=== PATIENT | male | born 1945 | race Caucasian/White ===

== ENCOUNTER 2023-05-19 09:22 | Inpatient (IN) | payer MEDICARE, BC ==
[2023-05-19] MEDS ORDERED: ATROPINE SULFATE 0.4 MG/ML 1 ML VIAL IV STA (09:25)
[2023-05-19] MEDS ORDERED: ATROPINE SULFATE 0.1 MG/ML 10ML SYRINGE IV STA (09:25)
[2023-05-19 09:33] LABS: Glucose,Whole Blood 279 mg/dL (70-110)
[2023-05-19] MEDS ORDERED: NOREPINEPHRINE 4 MG in SODIUM CHLORIDE 0.9% 250 ML IV ONE (09:33)
--- NOTE | 2023-05-19 09:38 | ED ---
General Adult HPI - General Chief complaint: Cardiac Arrest/CPR Stated complaint: Cardiac Arrest Source: EMS, RN notes reviewed, old records reviewed Mode of arrival: EMS Limitations: physical limitation - History of Present Illness Initial comments: 77-year-old male presents status post cardiac arrest. This was out of Hospital unwitnessed arrest exact downtime is unknown. First responders had been contacted as the patient was unresponsive on his porch outside after going out to smoke a cigarette. This was at a proximally 745. CPR was initiated by police. It was continued by paramedics, he received a Geraldo airway. He was given multiple doses of epinephrine and atropine. Initial rhythm was asystole. He did regain an organized rhythm as well as pulses during transport and was brought to this institution. This was likely a prolonged downtime prior to CPR as well as a prolonged CPR. - Related Data Allergies Allergy/AdvReac Type Severity Reaction Status Date / Time No Known Allergies Allergy Verified 05/19/23 09:28 Review of Systems ROS Statement: Those systems with pertinent positive or pertinent negative responses have been documented in the HPI. ROS Other: All systems not noted in ROS Statement are negative. General Exam General appearance: obtunded Head exam: Present: atraumatic, normocephalic Eye exam: Present: PERRL (Pulses are 7 mm and fixed) Neck exam: Present: normal inspection Respiratory exam: Present: other (Lateral breath sounds). Absent: respiratory distress, wheezes Cardiovascular Exam: Present: normal rhythm, bradycardia GI/Abdominal exam: Present: soft. Absent: distended, tenderness Neurological exam: Absent: alert Skin exam: Present: warm, dry Course Vital Signs 05/19/23 05/19/23 05/19/23 09:24 09:30 10:14 Temperature 96.8 F L Pulse Rate 48 L Respiratory 16 Rate Blood Pressure 94/66 Fraction of 100 100 Inspired Oxygen (FIO2) 05/19/23 11:16 Temperature Pulse Rate Respiratory Rate Blood Pressure Fraction of 100 Inspired Oxygen (FIO2) Procedures - Intubation Laryngoscope: Saurav Size: 3 ET Tube Size: 7.5 ET Tube Uncuffed: No Tube Secured Depth (cm): 23 Tube Secured Location: lips Tube Placement Confirmation: visualized tube passing through cords, equal breath sounds bilaterally, no breath sounds over epigastrium, confirmation by cap nometry Patient Tolerated Procedure: well, no complications Intubation Complications: none Medical Decision Making - Medical Decision Making Was pt. sent in by a medical professional or institution (CHANI Moran, IMPROVEMENT ANALYST, urgent care, hospital, or skilled nursing...) When possible be specific @ -No Did you speak to anyone other than the patient for history (EMS, parent, family, police, friend...)? What history was obtained from this source @ -[EMS Did you review nursing and triage notes (agree or disagree)? Why? @ -I reviewed and agree with nursing and triage notes Were old charts reviewed (outside hosp., previous admission, EMS record, old EKG, old radiological studies, urgent care reports/EKG's, skilled nursing records)? Report findings @ -No old charts were reviewed Differential Diagnosis (chest pain, altered mental status, abdominal pain women, abdominal pain men, vaginal bleeding, weakness, fever, dyspnea, syncope, head ache, dizziness, GI bleed, back pain, seizure, CVA, palpatations, mental health, musculoskeletal)? @ -Cardiac arrest EKG interpreted by me (3pts min.). @ -Sinus bradycardia rate 45, WI interval 167, QRS duration 151, QTC 481 X-rays interpreted by me (1pt min.). @Chest x-ray showing pulmonary edema, satisfactory ET tube placement CT interpreted by me (1pt min.). @ -None done U/S interpreted by me (1pt. min.). @ -None done What testing was considered but not performed or refused? (CT, X-rays, U/S, labs)? Why? @ -None What meds were considered but not given or refused? Why? @ -None Did you discuss the management of the patient with other professionals (professionals i.e. CHANI Moran, IMPROVEMENT ANALYST, lab, RT, psych nurse, director social welfare, circulating nurse, teacher, information management officer, case management coordinator)? Give summary @ -Case discussed with Dr. Huerta who will admit and Dr. Fournier covering for critical care Was smoking cessation discussed for >3mins.? @ -No Was critical care preformed (if so, how long)? @ -Yes, 35 minutes Were there social determinants of health that impacted care today? How? (Homelessness, low income, unemployed, alcoholism, drug addiction, transportation, low edu. Level, literacy, decrease access to med. care, longterm, rehab)? @ -No Was there de-escalation of care discussed even if they declined (Discuss DNR or withdrawal of care, Hospice)? DNR status @ -No What co-morbidities impacted this encounter? (DM, HTN, Smoking, COPD, CAD, Cancer, CVA, ARF, Chemo, Hep., AIDS, mental health diagnosis, sleep apnea, morbid obesity)? @ -CAD, peripheral vascular disease Was patient admitted / discharged? Hospital course, mention meds given and route, prescriptions, significant lab abnormalities, going to OR and other pertinent info. @ -[77 -year-old male presenting as out of Hospital cardiac arrest. Patient does have a measurable blood pressure and is in an organized rhythm upon arrival. His bedside echo shows severely depressed EF. He requires vasopressors. He's intubated upon arrival. Patient has very poor prognosis, no corneal reflex, no pupillary reflex, no gag. He has lab abnormalities consistent with prolonged downtime including pH of 6.8, lactic acid of 13. He's in multiorgan failure. I did discuss with the at length the poor prognosis. At this time the patient will be marked DO NOT RESUSCITATE, no CPR further. Undiagnosed new problem with uncertain prognosis? @ -No Drug Therapy requiring intensive monitoring for toxicity (Heparin, Nitro, Insulin, Cardizem)? @ -No Were any procedures done? @ -No Diagnosis/symptom? @Cardiopulmonary arrest with return of spontaneous circulation Acute, or Chronic, or Acute on Chronic? @Acute Uncomplicated (without systemic symptoms) or Complicated (systemic symptoms)? @ -complicated Side effects of treatment? @ -No Exacerbation, Progression, or Severe Exacerbation? @ -No Poses a threat to life or bodily function? How? (Chest pain, USA, CA, pneumonia, PE, COPD, DKA, ARF, appy, cholecystitis, CVA, Diverticulitis, Homicidal, Suicidal, threat to staff... and all critical care pts) @ -[yes, likely end-of-life - Lab Data Result diagrams: 05/19/23 09:31 05/19/23 09:31 Lab Results 05/19/23 05/19/23 05/19/23 Range/Units 09:31 09:31 09:31 WBC 5.4 (3.8-10.6) k/uL RBC 4.93 (4.30-5.90) m/uL Hgb 16.0 (13.0-17.5) gm/dL Hct 53.4 H (39.0-53.0) % MCV 108.2 H (80.0-100.0) fL MCH 32.4 (25.0-35.0) pg MCHC 30.0 L (31.0-37.0) g/dL RDW 13.6 (11.5-15.5) % Plt Count 89 L (150-450) k/uL MPV 10.3 Neutrophils % 56 % Lymphocytes % 35 % Monocytes % 3 % Eosinophils % 2 % Basophils % 1 % Neutrophils # 3.0 (1.3-7.7) k/uL Lymphocytes # 1.9 (1.0-4.8) k/uL Monocytes # 0.2 (0-1.0) k/uL Eosinophils # 0.1 (0-0.7) k/uL Basophils # 0.1 (0-0.2) k/uL Manual Slide Review Performed Hypochromasia Marked Macrocytosis Marked A PT 13.3 H (10.0-12.5) sec INR 1.3 H (<1.2) APTT 42.0 H (22.0-30.0) sec Sample Site ABG pH (7.35-7.45) ABG pCO2 (35-45) mmHg ABG pO2 (83-108) mmHg ABG HCO3 (21-25) mmol/L ABG Total CO2 (19-24) mmol/L ABG O2 Saturation (94-97) % ABG Base Excess mmol/L Jeff Test FiO2 % Sodium (137-145) mmol/L Potassium (3.5-5.1) mmol/L Chloride (98-107) mmol/L Carbon Dioxide (22-30) mmol/L Anion Gap mmol/L BUN (9-20) mg/dL Creatinine (0.66-1.25) mg/dL Est GFR (CKD-EPI)AfAm (>60 ml/min/1.73 sqM) Est GFR (CKD-EPI)NonAf (>60 ml/min/1.73 sqM) Glucose (74-99) mg/dL POC Glucose (mg/dL) (70-110) mg/dL POC Glu Predatory Game Hunter ID Plasma Lactic Acid Oliver (0.7-2.0) mmol/L Calcium (8.4-10.2) mg/dL Magnesium (1.6-2.3) mg/dL Total Bilirubin (0.2-1.3) mg/dL AST (17-59) U/L ALT (4-49) U/L Alkaline Phosphatase (38-126) U/L Troponin I (0.000-0.034) ng/mL Total Protein (6.3-8.2) g/dL Albumin (3.5-5.0) g/dL Urine Color Yellow Urine Appearance Clear (Clear) Urine pH 6.0 (5.0-8.0) Ur Specific [place] 1.020 (1.001-1.035) Urine Protein 1+ H (Negative) Urine Glucose (UA) Negative (Negative) Urine Ketones Negative (Negative) Urine Blood Negative (Negative) Urine Nitrite Negative (Negative) Urine Bilirubin Negative (Negative) Urine Urobilinogen <2.0 (<2.0) mg/dL Ur Leukocyte Esterase Negative (Negative) Urine RBC 3 (0-5) /hpf Urine WBC 1 (0-5) /hpf Urine Bacteria Rare H (None) /hpf Urine Mucus Occasional H (None) /hpf 05/19/23 05/19/23 05/19/23 Range/Units 09:31 09:31 09:31 WBC (3.8-10.6) k/uL RBC (4.30-5.90) m/uL Hgb (13.0-17.5) gm/dL Hct (39.0-53.0) % MCV (80.0-100.0) fL MCH (25.0-35.0) pg MCHC (31.0-37.0) g/dL RDW (11.5-15.5) % Plt Count (150-450) k/uL MPV Neutrophils % % Lymphocytes % % Monocytes % % Eosinophils % % Basophils % % Neutrophils # (1.3-7.7) k/uL Lymphocytes # (1.0-4.8) k/uL Monocytes # (0-1.0) k/uL Eosinophils # (0-0.7) k/uL Basophils # (0-0.2) k/uL Manual Slide Review Hypochromasia Macrocytosis PT (10.0-12.5) sec INR (<1.2) APTT (22.0-30.0) sec Sample Site ABG pH (7.35-7.45) ABG pCO2 (35-45) mmHg ABG pO2 (83-108) mmHg ABG HCO3 (21-25) mmol/L ABG Total CO2 (19-24) mmol/L ABG O2 Saturation (94-97) % ABG Base Excess mmol/L Jeff Test FiO2 % Sodium 143 (137-145) mmol/L Potassium 4.7 (3.5-5.1) mmol/L Chloride 111 H (98-107) mmol/L Carbon Dioxide 13 L (22-30) mmol/L Anion Gap 19 mmol/L BUN 24 H (9-20) mg/dL Creatinine 1.92 H (0.66-1.25) mg/dL Est GFR (CKD-EPI)AfAm 38 (>60 ml/min/1.73 sqM) Est GFR (CKD-EPI)NonAf 33 (>60 ml/min/1.73 sqM) Glucose 280 H (74-99) mg/dL POC Glucose (mg/dL) (70-110) mg/dL POC Glu Predatory Game Hunter ID Plasma Lactic Acid Oliver 12.8 H* (0.7-2.0) mmol/L Calcium 9.0 (8.4-10.2) mg/dL Magnesium 2.6 H (1.6-2.3) mg/dL Total Bilirubin 1.4 H (0.2-1.3) mg/dL AST 449 H (17-59) U/L ALT 282 H (4-49) U/L Alkaline Phosphatase 101 (38-126) U/L Troponin I 0.036 H* (0.000-0.034) ng/mL Total Protein 6.6 (6.3-8.2) g/dL Albumin 3.9 (3.5-5.0) g/dL Urine Color Urine Appearance (Clear) Urine pH (5.0-8.0) Ur Specific [place] (1.001-1.035) Urine Protein (Negative) Urine Glucose (UA) (Negative) Urine Ketones (Negative) Urine Blood (Negative) Urine Nitrite (Negative) Urine Bilirubin (Negative) Urine Urobilinogen (<2.0) mg/dL Ur Leukocyte Esterase (Negative) Urine RBC (0-5) /hpf Urine WBC (0-5) /hpf Urine Bacteria (None) /hpf Urine Mucus (None) /hpf 05/19/23 05/19/23 Range/Units 09:32 09:56 WBC (3.8-10.6) k/uL RBC (4.30-5.90) m/uL Hgb (13.0-17.5) gm/dL Hct (39.0-53.0) % MCV (80.0-100.0) fL MCH (25.0-35.0) pg MCHC (31.0-37.0) g/dL RDW (11.5-15.5) % Plt Count (150-450) k/uL MPV Neutrophils % % Lymphocytes % % Monocytes % % Eosinophils % % Basophils % % Neutrophils # (1.3-7.7) k/uL Lymphocytes # (1.0-4.8) k/uL Monocytes # (0-1.0) k/uL Eosinophils # (0-0.7) k/uL Basophils # (0-0.2) k/uL Manual Slide Review Hypochromasia Macrocytosis PT (10.0-12.5) sec INR (<1.2) APTT (22.0-30.0) sec Sample Site lrad ABG pH 6.80 L* (7.35-7.45) ABG pCO2 92 H* (35-45) mmHg ABG pO2 110 H (83-108) mmHg ABG HCO3 14 L (21-25) mmol/L ABG Total CO2 17 L (19-24) mmol/L ABG O2 Saturation 91.5 L (94-97) % ABG Base Excess -20.1 mmol/L Jeff Test Yes FiO2 100 % Sodium (137-145) mmol/L Potassium (3.5-5.1) mmol/L Chloride (98-107) mmol/L Carbon Dioxide (22-30) mmol/L Anion Gap mmol/L BUN (9-20) mg/dL Creatinine (0.66-1.25) mg/dL Est GFR (CKD-EPI)AfAm (>60 ml/min/1.73 sqM) Est GFR (CKD-EPI)NonAf (>60 ml/min/1.73 sqM) Glucose (74-99) mg/dL POC Glucose (mg/dL) 279 H (70-110) mg/dL POC Glu Predatory Game Hunter ID Criss Christy Plasma Lactic Acid Oliver (0.7-2.0) mmol/L Calcium (8.4-10.2) mg/dL Magnesium (1.6-2.3) mg/dL Total Bilirubin (0.2-1.3) mg/dL AST (17-59) U/L ALT (4-49) U/L Alkaline Phosphatase (38-126) U/L Troponin I (0.000-0.034) ng/mL Total Protein (6.3-8.2) g/dL Albumin (3.5-5.0) g/dL Urine Color Urine Appearance (Clear) Urine pH (5.0-8.0) Ur Specific [place] (1.001-1.035) Urine Protein (Negative) Urine Glucose (UA) (Negative) Urine Ketones (Negative) Urine Blood (Negative) Urine Nitrite (Negative) Urine Bilirubin (Negative) Urine Urobilinogen (<2.0) mg/dL Ur Leukocyte Esterase (Negative) Urine RBC (0-5) /hpf Urine WBC (0-5) /hpf Urine Bacteria (None) /hpf Urine Mucus (None) /hpf Critical Care Time Critical Care Time: Yes Total Critical Care Time: 35 Disposition Clinical Impression: Cardiac arrest, Signs of return of spontaneous circulation Disposition: ADMITTED IP TO THIS [facility] Condition: Poor Is patient prescribed a controlled substance at d/c from ED?: No Referrals: Xavi Cummings MD [Primary Care Provider] - 1-2 days Time of Disposition: 11:34
[2023-05-19] MEDS ORDERED: EPINEPHrine 10 ML SYRINGE (0.1 MG/ML) IV STA (09:48)
--- NOTE | 2023-05-19 09:56 | XR ---
EXAMINATION TYPE: XR chest 1V portable DATE OF EXAM: 05/19/2023 COMPARISON: NONE HISTORY: Cardiac arrest TECHNIQUE: Single frontal view of the chest is obtained. FINDINGS: There is an ET tube 4.3 cm above the sharmila. There is an NG tube within the stomach. Heart is prominent in size. There are diffuse interstitial and alveolar infiltrates greatest in the upper lobes. There is no pleural effusion or pneumothorax. The osseous structures are intact. IMPRESSION: IMPRESSION: 1. ET tube 4.3 cm above the sharmila. NG tube within the stomach. 2. Mild cardiomegaly. 3. Diffuse lung infiltrates consistent with acute cardiopulmonary disease most likely interstitial an d alveolar edema.
[2023-05-19 10:03] LABS: ABG Base Excess -20.1 mmol/L; ABG HCO3 14 mmol/L (21-25); ABG Oxygen Saturation 91.5 % (94-97); ABG PO2 110 mmHg (83-108); ABG TCO2 17 mmol/L (19-24); Allen Test Performed? Yes
[2023-05-19 10:09] LABS: Basophils # (A) 0.1 k/uL (0-0.2); Basophils % (A) 1 %; Eosinophils # (A) 0.1 k/uL (0-0.7); Eosinophils % (A) 2 %; HCT 53.4 % (39.0-53.0); Hypochromasia Marked; Lymphocytes # (A) 1.9 k/uL (1.0-4.8); Lymphocytes % (A) 35 %; MCH 32.4 pg (25.0-35.0); MCV 108.2 fL (80.0-100.0); Macrocytosis Marked; Mean Platelet Volume 10.3; Monocytes # (A) 0.2 k/uL (0-1.0); Monocytes % (A) 3 %; Neutrophils % (A) 56 %; RBC 4.93 m/uL (4.30-5.90); RDW 13.6 % (11.5-15.5); WBC 5.4 k/uL (3.8-10.6)
[2023-05-19 10:12] LABS: ABG PCO2 92 mmHg (35-45)
[2023-05-19 10:22] LABS: ALT 282 U/L (4-49); African American GFR (CKD) 38 (>60 ml/min/1.73 sqM); Albumin 3.9 g/dL (3.5-5.0); Anion Gap 19 mmol/L; Blood Urea Nitrogen 24 mg/dL (9-20); Carbon Dioxide 13 mmol/L (22-30); Chloride 111 mmol/L (98-107); Glucose 280 mg/dL (74-99); Non-African American GFR(CKD) 33 (>60 ml/min/1.73 sqM); Sodium 143 mmol/L (137-145); Total Bilirubin 1.4 mg/dL (0.2-1.3); Total Protein 6.6 g/dL (6.3-8.2)
[2023-05-19 10:26] LABS: AST 449 U/L (17-59); Alkaline Phosphatase 101 U/L (38-126); Magnesium 2.6 mg/dL (1.6-2.3); Potassium 4.7 mmol/L (3.5-5.1)
[2023-05-19 10:32] LABS: Appearance,Urine Clear (Clear); Bacteria,Urine Rare /hpf; Bilirubin,Urine Negative (Negative); Blood,Urine Negative (Negative); Color,Urine Yellow; Glucose,Urine (UA) Negative (Negative); Ketones,Urine Negative (Negative); Leukocyte Esterase,Urine Negative (Negative); Mucus,Urine Occasional /hpf; Nitrite,Urine Negative (Negative); Protein,Urine 1+ (Negative); RBC,Urine 3 /hpf (0-5); Urobilinogen,Urine <2.0 mg/dL (<2.0); WBC,Urine 1 /hpf (0-5)
[2023-05-19 10:41] LABS: Platelet Count 89 k/uL (150-450)
[2023-05-19 10:45] LABS: INR 1.3 (<1.2); Prothrombin Time 13.3 sec (10.0-12.5)
[2023-05-19] MEDS ORDERED: MORPHINE SULFATE 4 MG/ML SYRINGE IV PRN (11:23)
[2023-05-19] MEDS ORDERED: LORazepam 2 MG/ML INJ IV PRN (11:23)
[2023-05-19] MEDS ORDERED: NALOXONE 0.4 MG/ML 1 ML VIAL IV PRN (11:23)
[2023-05-19] MEDS ORDERED: IPRATROPIUM-ALBUTEROL 3 ML NEB INHALATION PRN (11:50)
--- NOTE | 2023-05-19 12:01 | P.CNPUL ---
History of Present Illness Consult date: 05/19/23 Chief complaint: Cardiac arrest History of present illness: 77-year-old male patient with prolonged cardiac arrest. Currently intubated on a mechanical ventilator. He lives in [place]. He is known to have coronary artery disease and he has undergone multiple coronary intervention, his credit checker Dr. Cummings. In same time he is also known to have peripheral vascular disease undergone vascular intervention to his legs. He is a chronic smoker. He has hypertension and hypothyroidism. He went out to smoke a cigarette at 745. He was found unresponsive at 820. He was found in asystole. CPR was applied. A Geraldo airway was established. The patient was given epinephrine and atropine 3 of each and [facility] He was intubated. Placed on a mechanical ventilator. Initially on a rate of 18, tidal volume of 450, FiO2 of on a percent with a PEEP of 5. Chest x-ray is consistent with pulmonary edema. The pH is at 6.8 with a CO2 of 92 and pO2 of 110. INR is 1.3. echoes of 5.4, hemoglobin is at 16, BUN is at 24 with a creatinine of 1.9. LFTs are abnormal and the troponins at 0.03. EKG showing sinus rhythm with some prolongation of the QT. UA is negative. Currently on norepinephrine at 0.1 mcg/kg/m. Current temperature is 90.6. Most recent BP is 123/66. No urine output. Pupils are fixed dilated. No respiratory efforts. No cough. No gag. No Babinski. No clonus. Motor function cannot be assessed. No signs of trauma. The tells me that he doesn't have any COPD. He has chronic dyspnea. He has not been compliant to his medication intake. Is a chronic smoker. Review of Systems ROS unobtainable: due to endotracheal tube Past Medical History Past Medical History: Coronary Artery Disease (CAD), Hyperlipidemia, Hypertension, Vascular Disorder Medications and Allergies Home Medications Medication Instructions Recorded Confirmed Type Atorvastatin [Lipitor] 80 mg PO HS 05/19/23 05/19/23 History Brimonidine Tartrate [Alphagan P 1 drops RIGHT EYE TID 05/19/23 05/19/23 History 0.2% Ophth Soln] Clopidogrel [Plavix] 75 mg PO DAILY 05/19/23 05/19/23 History Dorzolamide-Timol 2.23%/0.68% 1 drop BOTH EYES BID 05/19/23 05/19/23 History [Cosopt] Latanoprost [Latanoprost 0.005%] 1 drop BOTH EYES HS 05/19/23 05/19/23 History Levothyroxine Sodium [Synthroid] 150 mcg PO DAILY 05/19/23 05/19/23 History carvediloL [Coreg] 3.125 mg PO BID 05/19/23 05/19/23 History lisinopriL [Zestril] 20 mg PO DAILY 05/19/23 05/19/23 History Allergies Allergy/AdvReac Type Severity Reaction Status Date / Time No Known Allergies Allergy Verified 05/19/23 11:48 Physical Exam Vitals: Vital Signs Temp Pulse Resp BP FiO2 05/19/23 11:16 100 05/19/23 10:14 100 05/19/23 09:30 100 05/19/23 09:24 96.8 F L 48 L 16 94/66 Intake and Output 05/18/23 05/19/23 05/19/23 22:59 06:59 14:59 Intake Total 13.895 Output Total 300 Balance -286.105 Intake: Intake, IV Titration 13.895 Amount Norepinephrine 4 mg In 13.895 Sodium Chloride 0.9% 250 ml @ 0.03 MCG/KG/MIN 9. 332 mls/hr IV .Q24H ONE Rx#:[id number] Output: Urine 300 Uretheral ([place]) 300 Other: Weight 81.647 kg Intubated on a mechanical ventilator, orogastric and orotracheal tube are both in place Head exam was generally normal. There was no scleral icterus or corneal arcus. Mucous membranes were moist. Neck was supple and with jugular venous distension, thyromegaly, or carotid bruits. Carotids were easily palpable bilaterally. There was no adenopathy. Positive JVD is bilaterally Lungs were clear to auscultation and percussion, and with normal diaphragmatic excursion. No wheezes or rales were noted. Crackles in the mid and lower lung jade Cardiac exam revealed the PMI to be normally situated and sized. The rhythm was regular and no extrasystoles were noted during several minutes of auscultation. The first and second heart sounds were normal and physiologic splitting of the second heart sound was noted. There were no murmurs, rubs, clicks, or gallops. Abdominal exam revealed normal bowel sounds. The abdomen was soft, non-tender, and without masses, organomegaly, or appreciable enlargement of the abdominal aorta. Extremities revealed markedly diminished pulses and the legs are cold and clammy. No cyanosis or clubbing Neurologically fixed dilated pupils, no cough, no gag, no respiratory efforts, no nystagmus, no facial asymmetry, motor and sensory functions cannot be assessed. Reflexes are extremely weak and no Babinski or clonus. Results - Laboratory Findings CBC and BMP: 05/19/23 09:31 05/19/23 09:31 ABG ABG pH 6.80 (7.35-7.45) L* 05/19/23 09:56 ABG pCO2 92 mmHg (35-45) H* 05/19/23 09:56 ABG pO2 110 mmHg (83-108) H 05/19/23 09:56 ABG O2 Saturation 91.5 % (94-97) L 05/19/23 09:56 PT/INR, D-dimer PT 13.3 sec (10.0-12.5) H 05/19/23 09:31 INR 1.3 (<1.2) H 05/19/23 09:31 Abnormal lab findings: Abnormal Labs 05/19/23 05/19/23 05/19/23 09:31 09:31 09:31 Hct 53.4 H MCV 108.2 H MCHC 30.0 L Plt Count 89 L Macrocytosis Marked A PT 13.3 H INR 1.3 H APTT 42.0 H ABG pH ABG pCO2 ABG pO2 ABG HCO3 ABG Total CO2 ABG O2 Saturation Chloride Carbon Dioxide BUN Creatinine Glucose POC Glucose (mg/dL) Plasma Lactic Acid Oliver Magnesium Total Bilirubin AST ALT Troponin I Urine Protein 1+ H Urine Bacteria Rare H Urine Mucus Occasional H 05/19/23 05/19/23 05/19/23 09:31 09:31 09:31 Hct MCV MCHC Plt Count Macrocytosis PT INR APTT ABG pH ABG pCO2 ABG pO2 ABG HCO3 ABG Total CO2 ABG O2 Saturation Chloride 111 H Carbon Dioxide 13 L BUN 24 H Creatinine 1.92 H Glucose 280 H POC Glucose (mg/dL) Plasma Lactic Acid Oliver 12.8 H* Magnesium 2.6 H Total Bilirubin 1.4 H AST 449 H ALT 282 H Troponin I 0.036 H* Urine Protein Urine Bacteria Urine Mucus 05/19/23 05/19/23 09:32 09:56 Hct MCV MCHC Plt Count Macrocytosis PT INR APTT ABG pH 6.80 L* ABG pCO2 92 H* ABG pO2 110 H ABG HCO3 14 L ABG Total CO2 17 L ABG O2 Saturation 91.5 L Chloride Carbon Dioxide BUN Creatinine Glucose POC Glucose (mg/dL) 279 H Plasma Lactic Acid Oliver Magnesium Total Bilirubin AST ALT Troponin I Urine Protein Urine Bacteria Urine Mucus - Diagnostic Findings Chest x-ray: image reviewed Assessment and Plan Plan: Acute asystole/cardiac arrest, found in the field and resuscitated for an extended period of time. Intubated in the emergency department. Received CPR, epinephrine and atropine with return of spontaneous circulation. Currently intubated on a mechanical ventilator. Currently on high-dose pressors. Cardiogenic shock secondary to above Acute hypoxic respiratory failure with evidence of pulmonary edema secondary to above Severe acidosis with a lactic acid level of 12.8 secondary to above Acute kidney injury secondary to above, baseline creatinine is not known Acute hyperglycemia secondary to above Abnormal LFTs secondary to above Elevated troponins, secondary to above Known history of coronary artery disease with previous coronary intervention and stenting, under the care of Dr. Cummings Peripheral vascular disease Hypertension Hyperlipidemia Hypothyroidism Smoker Plan Patient is critically ill and neurologic functions are not present at this point in time. He has signs of severe anoxic encephalopathy Continue ventilator support, increase rate to 28, increase PEEP up to 10 Patient was given a liter of IV fluids in the emergency Continue maintenance at the rate of 75 mL an hour and switch this patient for a bicarb infusion with D5 and a total of 150 mEq of sodium bicarb Monitor lactic acid level Monitor the blood gases Repeated a blood once the patient arrives today ICU Avoid diuretics at this point in time Monitor urine output Obtain a CAT scan of the brain noncontrast Obtain echocardiogram was the patient rested ICU Triple-lumen catheter was established Resume oral Synthroid Resume oral Lipitor Resume oral Plavix Insulin sliding scale coverage and drip if needed based on his blood sugar control Lovenox 40 mg subcu portably prophylaxis Cardiology consultation Neurology consultation Condition is critical and outcome is poor based above-mentioned comorbidities. We'll continue to follow. Evaluation was done more than 30 minutes. Case was discussed with the family and ED physician. Time with Patient: Greater than 30
--- NOTE | 2023-05-19 12:02 | P.PCN ---
Date of Procedure: 05/19/23 Operative Findings: Preoperative Diagnosis: Acute hypoxic respiratory failure Postoperative Diagnosis: Same Procedure(s) Performed: Central line Anesthesia: local Surgeon: Estefania Fournier Estimated Blood Loss (ml): 0 Pathology: other Condition: critical Disposition: ICU Operative Findings: Indication: Hemodynamic monitoring/Intravenous access. A time-out was completed verifying correct patient, procedure, site, positioning, and implant(s) or special equipment if applicable. The patient was placed in a dependent position appropriate for central line placement based on the vein to be cannulated. The patients chest was prepped and draped in sterile fashion. 1% Lidocaine was used to anesthetize the surrounding skin area. A triple lumen 9F Cordis catheter was introduced into the left subclavian vein using Seldinger technique. The catheter was threaded smoothly over the guide wire and appropriate blood return was obtained. Each lumen of the catheter was evacuated of air and flushed with sterile saline. The catheter was then sutured in place to the skin and a sterile dressing applied. Perfusion to the extremity distal to the point of catheter insertion was checked and found to be adequate. The patient tolerated the procedure well and there were no complications.
--- NOTE | 2023-05-19 12:08 | XR ---
EXAMINATION TYPE: XR chest 1V portable DATE OF EXAM: 05/19/2023 COMPARISON: 05/19/2023 HISTORY: Line placement TECHNIQUE: Single frontal view of the chest is obtained. FINDINGS: There is an ET tube 5.5 cm above the sharmila. An NG tube in the distal esophagus. There is a left-sided PICC line terminating in the superior vena cava. There is no change in diffuse predominantly upper lobe interstitial and alveolar infiltrates. IMPRESSION: 1. ET tube 5.5 cm above the sharmila. 2. ET tube now in the distal esophagus. 3 left-sided PICC line in the SVC. 4. No change in the acute cardiopulmonary disease.
[2023-05-19 12:30] LABS: Glucose,Whole Blood 189 mg/dL (70-110)
[2023-05-19] MEDS: IPRATROPIUM-ALBUTEROL 3 ML NEB INHALATION SCH ×2 (12:37→15:17)
--- NOTE | 2023-05-19 12:50 | CT ---
EXAMINATION TYPE: CT brain wo con DATE OF EXAM: 05/19/2023 COMPARISON: None HISTORY: post cardiac arrest CT DLP: 1212.4 mGycm Automated exposure control for dose reduction was used. FINDINGS: There is loss of the whitt-white differentiation indicating diffuse brain edema. There is a large area of subtle decreased density in the distribution of the right middle cerebral artery consistent with an acute infarct. There is mass effect on the right lateral ventricle and slight shift in midline str uctures to the left. There is diffuse subarachnoid hemorrhage throughout the sulci bilaterally and layering along the tent orium and falx. The intraorbital contents appear normal and symmetric. Visualized paranasal sinuses and mastoid air cells are well aerated. There is an ET tube in place. IMPRESSION: 1. Diffuse acute subarachnoid hemorrhage and brain edema with slight mass effect and shift of midlin e structures to the left. 2. . Suspect large infarct involving the right frontal and temporal lobes in the distribution of the right middle cerebral artery. 3. MRI of the brain might be useful for further evaluation.
[2023-05-19] MEDS ORDERED: DEXTROSE 5% IN WATER 1,000 ML with SODIUM BICARB (1 MEQ/ML) 150 ML IV SCH (13:00)
[2023-05-19 13:03] LABS: ABG Base Excess -11.3 mmol/L; ABG HCO3 16 mmol/L (21-25); ABG Oxygen Saturation 99.4 % (94-97); ABG PCO2 39 mmHg (35-45); ABG PH 7.23 (7.35-7.45); ABG PO2 >400 mmHg (83-108); ABG TCO2 18 mmol/L (19-24); Allen Test Performed? Yes
--- NOTE | 2023-05-19 13:35 | P.CRDCN ---
History of Present Illness Consult date: 05/19/23 History of present illness: HISTORY OF PRESENTING ILLNESS 77-year-old male presents to the hospital after a prolonged cardiac arrest. History of CAD, multiple coronary intervention. He also has peripheral vascular disease chronic smoker hypertension hypogonadism. Patient was found unresponsive at home with a approximate downtime of 20 minutes. The EMS was informed and there have been seen in within 6 minutes. On arrival to note is that patient was in asystole. They performed CPR for 20 minutes with a total downtime of approximately 40-50 minutes. Patient was brought to the hospital and was intubated in the ICU. Patient is currently on the vent support. Is not on any sedatives but does not have any extremity reflexes including Reflex. Cardiology was consulted because of cardiac arrest REVIEW OF SYSTEMS Could not be obtained as patient is intubated and sedated PHYSICAL EXAMINATION Neck: ET tube in place Lungs: On vent support, good air entry bilateral lung jade. Heart: Regular rate and rhythm, S1-S2, no S3, no murmur or rub. Abdomen: Soft nontender, . Extremities: No edema,. Neuro: Not on any sedatives, no gag reflex on suctioning. Detailed neuro exam was not performed ASSESSMENT Out of hospital cardiac arrest with prolonged downtime Asystole cardiac arrest Prior history of CAD Prior history of PAD Chronic tobacco smoker PLAN At this time there is high likelihood that patient has anoxic brain injury We will await neurology evaluation for brain stem function Obtain an echocardiogram Supportive ICU care and vent support as per pulmonary team Past Medical History Past Medical History: Coronary Artery Disease (CAD), Hyperlipidemia, Hypertension, Vascular Disorder Medications and Allergies Home Medications Medication Instructions Recorded Confirmed Type Atorvastatin [Lipitor] 80 mg PO HS 05/19/23 05/19/23 History Brimonidine Tartrate [Alphagan P 1 drops RIGHT EYE TID 05/19/23 05/19/23 History 0.2% Ophth Soln] Clopidogrel [Plavix] 75 mg PO DAILY 05/19/23 05/19/23 History Dorzolamide-Timol 2.23%/0.68% 1 drop BOTH EYES BID 05/19/23 05/19/23 History [Cosopt] Latanoprost [Latanoprost 0.005%] 1 drop BOTH EYES HS 05/19/23 05/19/23 History Levothyroxine Sodium [Synthroid] 150 mcg PO DAILY 05/19/23 05/19/23 History carvediloL [Coreg] 3.125 mg PO BID 05/19/23 05/19/23 History lisinopriL [Zestril] 20 mg PO DAILY 05/19/23 05/19/23 History Allergies Allergy/AdvReac Type Severity Reaction Status Date / Time No Known Allergies Allergy Verified 05/19/23 11:48 Physical Exam Vitals: Vital Signs Temp Pulse Resp BP Pulse Ox FiO2 05/19/23 13:04 50 05/19/23 12:45 66 28 H 05/19/23 12:37 66 28 H 05/19/23 12:30 60 16 112/68 98 05/19/23 12:28 100 05/19/23 11:30 60 16 123/66 100 05/19/23 11:16 100 05/19/23 11:00 56 L 14 86/47 100 05/19/23 10:30 54 L 14 62/48 98 05/19/23 10:14 100 05/19/23 10:00 76 14 60/47 92 L 05/19/23 09:30 45 L 14 60/21 92 L 100 05/19/23 09:24 96.8 F L 48 L 16 94/66 Intake and Output 05/18/23 05/19/23 05/19/23 22:59 06:59 14:59 Intake Total 20.376 Output Total 300 Balance -279.624 Intake: Intake, IV Titration 20.376 Amount Norepinephrine 4 mg In 20.376 Sodium Chloride 0.9% 250 ml @ 0.03 MCG/KG/MIN 9. 332 mls/hr IV .Q24H ONE Rx#:[id number] Output: Urine 300 Uretheral ([place]) 300 Other: Weight 81.647 kg Results 05/19/23 09:31 05/19/23 09:31 Cardiac Enzymes 05/19/23 05/19/23 Range/Units 09:31 09:31 AST 449 H (17-59) U/L Troponin I 0.036 H* (0.000-0.034) ng/mL Coagulation 05/19/23 Range/Units 09:31 PT 13.3 H (10.0-12.5) sec APTT 42.0 H (22.0-30.0) sec CBC 01/21/24 Range/Units 09:31 WBC 5.4 (3.8-10.6) k/uL RBC 4.93 (4.30-5.90) m/uL Hgb 16.0 (13.0-17.5) gm/dL Hct 53.4 H (39.0-53.0) % Plt Count 89 L (150-450) k/uL Comprehensive Metabolic Panel 05/19/23 Range/Units 09:31 Sodium 143 (137-145) mmol/L Potassium 4.7 (3.5-5.1) mmol/L Chloride 111 H (98-107) mmol/L Carbon Dioxide 13 L (22-30) mmol/L BUN 24 H (9-20) mg/dL Creatinine 1.92 H (0.66-1.25) mg/dL Glucose 280 H (74-99) mg/dL Calcium 9.0 (8.4-10.2) mg/dL AST 449 H (17-59) U/L ALT 282 H (4-49) U/L Alkaline Phosphatase 101 (38-126) U/L Total Protein 6.6 (6.3-8.2) g/dL Albumin 3.9 (3.5-5.0) g/dL Current Medications Generic Name Dose Route Start Last Admin Trade Name Freq PRN Reason Stop Dose Admin Albuterol/Ipratropium 3 ml 05/19/23 12:00 05/19/23 12:37 Ipratropium-Albuterol 3 Ml Neb INHALATION 3 ml RT-Q4H DEMETRIUS Administration Albuterol/Ipratropium 3 ml 05/19/23 11:50 Ipratropium-Albuterol 3 Ml Neb INHALATION RT-Q2H PRN Shortness Of Breath Or Wheezing Atorvastatin Calcium 80 mg 05/19/23 21:00 Atorvastatin 80 Mg Tab PO HS DEMETRIUS Chlorhexidine Gluconate 15 ml 05/19/23 21:00 Chlorhexidine Gluconate 15 Ml Cup MUCOUS MEM BID DEMETRIUS Clopidogrel Bisulfate 75 mg 05/20/23 09:00 Clopidogrel 75 Mg Tab PO DAILY [facility] Norepinephrine Bitartrate 4 mg 254 mls @ 9.332 mls/hr 05/19/23 09:33 05/19/23 10:40 / Sodium Chloride IV 05/20/23 09:32 0.14 mcg/kg/min .Q24H ONE 43.551 mls/hr Titration Protocol 0.03 MCG/KG/MIN Propofol 1,000 mg/ IV Solution 100 mls @ 7.348 mls/hr 05/19/23 12:00 IV .[id number] DEMETRIUS Protocol 15 MCG/KG/MIN Sodium Bicarbonate 150 ml/ 1,150 mls @ 75 mls/hr 05/19/23 13:00 Dextrose/Water IV .[id number] DEMETRIUS Lorazepam 1 mg 05/19/23 11:23 Lorazepam 2 Mg/Ml Inj IV Q6HR PRN Anxiety Morphine Sulfate 4 mg 05/19/23 11:23 Morphine Sulfate 4 Mg/Ml Syringe IV Q3HR PRN Severe Pain (Scale 7 to 10) Naloxone HCl 0.2 mg 05/19/23 11:23 Naloxone 0.4 Mg/Ml 1 Ml Vial IV Q2M PRN Opioid Reversal Intake and Output 05/18/23 05/19/23 05/19/23 22:59 06:59 14:59 Intake Total 20.376 Output Total 300 Balance -279.624 Intake: Intake, IV Titration 20.376 Amount Norepinephrine 4 mg In 20.376 Sodium Chloride 0.9% 250 ml @ 0.03 MCG/KG/MIN 9. 332 mls/hr IV .Q24H ONE Rx#:[id number] Output: Urine 300 Uretheral ([place]) 300 Other: Weight 81.647 kg Patient Weight 05/20/23 06:59 Weight 81.647 kg 05/19/23 09:31 05/19/23 09:31
[2023-05-19 14:37] VITALS: TEMP 89.3
--- NOTE | 2023-05-19 15:36 | P.CNNES ---
History of Present Illness Consult date: 05/19/23 History of Present Illness: The pt is a 77 y/o male who is seen in neurologic consultation on 2023, in collaboration with Bradly Curry, via teleneurology. History is obtained from review of the chart. The pt reportedly was found down. Police started CPR. The pt had gone outside to smoke a cigarette. Actual downtime is unknown. It is at least 20 minutes. EMS arrived and continued CPR. The pt reportedly received multiple doses of epi and atropine. There was return of NSR. In the ER, the pt was intubated. CT scan of the brain is personally reviewed. It reveals severe, diffuse edema and subarachnoid hemorrhage. Laboratory evaluation reveals elevated lactic acid, Review of Systems unable to obtain secondary to mental status of pt Past Medical History Past Medical History: Coronary Artery Disease (CAD), Hyperlipidemia, Hypertension, Vascular Disorder Medications and Allergies Home Medications Medication Instructions Recorded Confirmed Type Atorvastatin [Lipitor] 80 mg PO HS 05/19/23 05/19/23 History Brimonidine Tartrate [Alphagan P 1 drops RIGHT EYE TID 05/19/23 05/19/23 History 0.2% Ophth Soln] Clopidogrel [Plavix] 75 mg PO DAILY 05/19/23 05/19/23 History Dorzolamide-Timol 2.23%/0.68% 1 drop BOTH EYES BID 05/19/23 05/19/23 History [Cosopt] Latanoprost [Latanoprost 0.005%] 1 drop BOTH EYES HS 05/19/23 05/19/23 History Levothyroxine Sodium [Synthroid] 150 mcg PO DAILY 05/19/23 05/19/23 History carvediloL [Coreg] 3.125 mg PO BID 05/19/23 05/19/23 History lisinopriL [Zestril] 20 mg PO DAILY 05/19/23 05/19/23 History Allergies Allergy/AdvReac Type Severity Reaction Status Date / Time No Known Allergies Allergy Verified 05/19/23 11:48 Physical Examination - Vital Signs Vital Signs: Vital Signs Temp Pulse Resp BP Pulse Ox FiO2 05/19/23 15:00 73 21 109/85 100 100 05/19/23 14:45 73 29 H 89/57 99 05/19/23 14:30 78 37 H 66/47 100 05/19/23 14:15 75 28 H 76/47 05/19/23 14:00 75 35 H 101/91 100 100 05/19/23 13:45 73 160/122 100 05/19/23 13:30 78 30 H 179/151 100 05/19/23 13:15 76 117/104 100 05/19/23 13:04 50 05/19/23 13:00 68 31 H 147/102 100 100 05/19/23 12:45 89.3 F L 70 25 H 189/143 100 100 05/19/23 12:37 66 28 H 05/19/23 12:30 60 16 112/68 98 05/19/23 12:28 100 05/19/23 11:30 60 16 123/66 100 05/19/23 11:16 100 05/19/23 11:00 56 L 14 86/47 100 05/19/23 10:30 54 L 14 62/48 98 05/19/23 10:14 100 05/19/23 10:00 76 14 60/47 92 L 05/19/23 09:30 45 L 14 60/21 92 L 100 05/19/23 09:24 96.8 F L 48 L 16 94/66 Intake and Output 05/19/23 05/19/23 05/19/23 06:59 14:59 22:59 Intake Total 111.107 Output Total 300 Balance -188.893 Intake: Intake, IV Titration 111.107 Amount Norepinephrine 4 mg In 111.107 Sodium Chloride 0.9% 250 ml @ 0.03 MCG/KG/MIN 9. 332 mls/hr IV .Q24H ONE Rx#:[id number] Output: Urine 300 Uretheral ([place]) 300 Other: Weight 81.647 kg General: The pt is supine in the bed. He is intubated. There is no sedation on board. HEENT: Atraumatic, normocephalic. No scleral icterus. Fundus not observed. Mucous membranes moist Neck: No bruits Heart: Regular rate and rhythm Lungs: At the time of this eval, the pt is not breathing over the vent. He was reportedly doing so, earlier Ext: Cold to the touch Neurological exam Mental status: The pt does not open eyes to verbal or noxious stim. He does not follow commands Cranial nerves: Pupils are 7mm on the right and 6mm on the left and nonreactive. Oculocephalic reflexes absent. Corneal reflexes absent. Gag and cough reflex are absent. Motor: There is no movement of the extremities, other than occas. fasiculations of the thighs, bilaterally. Sensation: No grimace or withdrawal from noxious stim Deep tendon reflexes: 1+/4+ in the uppers. Lower extremity reflexes absent. Plantar response is mute Coordination: Unable to assess Gait: Unable to assess Results - Laboratory Findings CBC and BMP: 05/19/23 09:31 05/19/23 09:31 Abnormal Lab Findings: Abnormal Labs 05/19/23 05/19/23 05/19/23 09:31 09:31 09:31 Hct 53.4 H MCV 108.2 H MCHC 30.0 L Plt Count 89 L Macrocytosis Marked A PT 13.3 H INR 1.3 H APTT 42.0 H ABG pH ABG pCO2 ABG pO2 ABG HCO3 ABG Total CO2 ABG O2 Saturation Chloride Carbon Dioxide BUN Creatinine Glucose POC Glucose (mg/dL) Plasma Lactic Acid Oliver Magnesium Total Bilirubin AST ALT Troponin I Urine Protein 1+ H Urine Bacteria Rare H Urine Mucus Occasional H 05/19/23 05/19/23 05/19/23 09:31 09:31 09:31 Hct MCV MCHC Plt Count Macrocytosis PT INR APTT ABG pH ABG pCO2 ABG pO2 ABG HCO3 ABG Total CO2 ABG O2 Saturation Chloride 111 H Carbon Dioxide 13 L BUN 24 H Creatinine 1.92 H Glucose 280 H POC Glucose (mg/dL) Plasma Lactic Acid Oliver 12.8 H* Magnesium 2.6 H Total Bilirubin 1.4 H AST 449 H ALT 282 H Troponin I 0.036 H* Urine Protein Urine Bacteria Urine Mucus 05/19/23 05/19/23 05/19/23 09:32 09:56 12:29 Hct MCV MCHC Plt Count Macrocytosis PT INR APTT ABG pH 6.80 L* ABG pCO2 92 H* ABG pO2 110 H ABG HCO3 14 L ABG Total CO2 17 L ABG O2 Saturation 91.5 L Chloride Carbon Dioxide BUN Creatinine Glucose POC Glucose (mg/dL) 279 H 189 H Plasma Lactic Acid Oliver Magnesium Total Bilirubin AST ALT Troponin I Urine Protein Urine Bacteria Urine Mucus 05/19/23 05/19/23 12:58 13:00 Hct MCV MCHC Plt Count Macrocytosis PT INR APTT ABG pH 7.23 L ABG pCO2 ABG pO2 >400 H ABG HCO3 16 L ABG Total CO2 18 L ABG O2 Saturation 99.4 H Chloride Carbon Dioxide BUN Creatinine Glucose POC Glucose (mg/dL) Plasma Lactic Acid Oliver 5.1 H* Magnesium Total Bilirubin AST ALT Troponin I Urine Protein Urine Bacteria Urine Mucus Assessment and Plan Assessment: 1. The pt is 77 year old male who suffered out of hospital cardiac arrest and subsequent severe cerebral anoxia with subarachnoid hemorrhage- Prognosis grave 2. Pulmonary edema per CXR 3. Hx CAD Plan: 1. Discussed prognosis with and daughter at bedside. Recommended Hospice consultation Time with Patient: Greater than 30 (spent 58 minutes caring for this pt today, including obtaining a history, examining the pt, reviewing imaging, chart documentation, labs and creating this note)
[2023-05-19 19:31] VITALS: BP 135/117; PULSE 0; RESP 0
--- NOTE | 2023-05-19 20:14 | P.HPIM ---
History of Present Illness H&P Date: 05/19/23 Chief Complaint: Cardiac arrest I'm rounding for Dr. Glynn Huerta This is a 77-year-old patient who follows with Dr. Xavi Cummings. About 820 this morning called 911. is the patient and the patient with Dr. ureña. She came order form the patient on the front porch. Estimated about 20 minutes. Prior to that that with no complaints. Has a known history of coronary artery disease hypertension. EMS arrived about 20 minutes. Initial rhythm was asystole. Subsequently patient was brought to [facility] ER. Denies ICU. Patient on the ventilator with FiO2 50 and a PEEP of 10. Epinephrine drip. Patient's , daughter and passed off the bedside. Patient has no brainstem reflexes. Pupils legs. No gag reflex. No pain response. 5 mL of recent patient has started making more and more tired. He was spending more time on the couch. Review of systems: Patient intubated Social history: . Retired. Long-standing smoker over 50 years. Physical examination: VITAL SIGNS: Afebrile, 70, 28, 135/417, 100% on the ventilator GENERAL: BMI 24.4, laying in bed intubated and sedated. EYES: Pupils equal. Conjunctiva normal. HEENT: External appearance of nose and ears normal, oral cavity grossly normal. ET tube NECK: JVD unable to assess; masses not palpable. HEART: First and second heart sounds are normal; no edema. LUNGS:[ Respiratory rate increased; diminished breath sounds. ABDOMEN: Soft, nontender, liver spleen not palpable, no masses palpable. PSYCH: [Sedated l. MUSCULOSKELETAL:No Clubbing/cyanosis;muscles-grossly intact. OA NEUROLOGICAL: Pupils are fixed and dilated. No coronary reflex. No gag reflex. Not responding to painful stimuli.. LYMPHATICS: No lymph nodes palpable in the axilla and neck INVESTIGATIONS, reviewed in the clinical context: White count 5.4 hemoglobin 16 platelets 89 potassium 4.7 BUN 24 creatinine 1.9 to lactic acid 12.8 AST 449 ALT 282 to glucose 289 EKG tracing personally reviewed by me-normal sinus rhythm. [address]- T wave changes. Chest x-ray film personally reviewed by me-diffuse infiltrates CT brain without contrast: Loss of whitt-white differentiation indicating diffuse brain edema. Large area of subtle decreased density in the distribution of the right middle cerebral artery consistent with an acute infarct. Mass effect. Diffuse subarachnoid hemorrhage throughout the sulci bilaterally. Assessment and plan: -Cardiac arrest secondary to severe stroke -Large right middle cerebral artery acute infarct -Diffuse cerebral edema with diffuse subarachnoid hemorrhage throughout bilaterally causing mass effect. 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 Discussed with the at the bedside. They looking for terminal extubation of the patient. 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 Family understands prognosis is very poor. Past Medical History Past Medical History: Coronary Artery Disease (CAD), Hyperlipidemia, Hypertension, Vascular Disorder History of Any Multi-Drug Resistant Organisms: None Reported Smoking Status: Current every day smoker Medications and Allergies Home Medications Medication Instructions Recorded Confirmed Type Atorvastatin [Lipitor] 80 mg PO HS 05/19/23 05/19/23 History Brimonidine Tartrate [Alphagan P 1 drops RIGHT EYE TID 05/19/23 05/19/23 History 0.2% Ophth Soln] Clopidogrel [Plavix] 75 mg PO DAILY 05/19/23 05/19/23 History Dorzolamide-Timol 2.23%/0.68% 1 drop BOTH EYES BID 05/19/23 05/19/23 History [Cosopt] Latanoprost [Latanoprost 0.005%] 1 drop BOTH EYES HS 05/19/23 05/19/23 History Levothyroxine Sodium [Synthroid] 150 mcg PO DAILY 05/19/23 05/19/23 History carvediloL [Coreg] 3.125 mg PO BID 05/19/23 05/19/23 History lisinopriL [Zestril] 20 mg PO DAILY 05/19/23 05/19/23 History Allergies Allergy/AdvReac Type Severity Reaction Status Date / Time No Known Allergies Allergy Verified 05/19/23 11:48 Physical Exam Vitals: Vital Signs Temp Pulse Resp BP Pulse Ox FiO2 05/19/23 17:00 81 27 H 97/57 100 05/19/23 16:45 78 28 H 82/64 100 05/19/23 16:30 69 29 H 69/32 100 05/19/23 16:15 68 28 H 102/56 100 05/19/23 16:00 67 28 H 102/51 100 100 05/19/23 15:45 65 28 H 115/93 100 05/19/23 15:30 68 24 61/47 100 05/19/23 15:29 68 28 H 05/19/23 15:19 68 28 H 05/19/23 15:15 69 30 H 68/51 99 05/19/23 15:11 50 05/19/23 15:00 73 21 109/85 100 100 05/19/23 14:45 73 29 H 89/57 99 05/19/23 14:30 78 37 H 66/47 100 05/19/23 14:15 75 28 H 76/47 05/19/23 14:00 75 35 H 101/91 100 100 05/19/23 13:45 73 160/122 100 05/19/23 13:30 78 30 H 179/151 100 05/19/23 13:15 76 117/104 100 05/19/23 13:04 50 05/19/23 13:00 68 31 H 147/102 100 100 05/19/23 12:45 89.3 F L 70 25 H 189/143 100 100 05/19/23 12:37 66 28 H 05/19/23 12:30 60 16 112/68 98 05/19/23 12:28 100 05/19/23 12:00 28 H 100 05/19/23 11:30 60 16 123/66 100 05/19/23 11:16 100 05/19/23 11:00 56 L 14 86/47 100 05/19/23 10:30 54 L 14 62/48 98 05/19/23 10:14 100 05/19/23 10:00 76 14 60/47 92 L 05/19/23 09:30 45 L 14 60/21 92 L 100 05/19/23 09:24 96.8 F L 48 L 16 94/66 Intake and Output 05/19/23 05/19/23 05/19/23 06:59 14:59 22:59 Intake Total 111.107 262.329 Output Total 300 7 Balance -188.893 255.329 Intake: Intake, IV Titration 111.107 262.329 Amount Dextrose 5% in Water 1, 225 000 ml @ 75 mls/hr IV . [id number] DEMETRIUS with Sodium Bicarb (1 Meq/ml) 150 ml Rx#:[id number] Norepinephrine 4 mg In 111.107 37.329 Sodium Chloride 0.9% 250 ml @ 0.03 MCG/KG/MIN 9. 332 mls/hr IV .Q24H ONE Rx#:[id number] Output: Urine 300 7 Uretheral ([place]) 300 Other: Weight 81.647 kg 81.647 kg Results CBC & Chem 7: 05/19/23 09:31 05/19/23 09:31 Labs: Abnormal Lab Results - Last 24 Hours (Table) 05/19/23 05/19/23 05/19/23 Range/Units 09:31 09:31 09:31 Hct 53.4 H (39.0-53.0) % MCV 108.2 H (80.0-100.0) fL MCHC 30.0 L (31.0-37.0) g/dL Plt Count 89 L (150-450) k/uL Macrocytosis Marked A PT 13.3 H (10.0-12.5) sec INR 1.3 H (<1.2) APTT 42.0 H (22.0-30.0) sec ABG pH (7.35-7.45) ABG pCO2 (35-45) mmHg ABG pO2 (83-108) mmHg ABG HCO3 (21-25) mmol/L ABG Total CO2 (19-24) mmol/L ABG O2 Saturation (94-97) % Chloride (98-107) mmol/L Carbon Dioxide (22-30) mmol/L BUN (9-20) mg/dL Creatinine (0.66-1.25) mg/dL Glucose (74-99) mg/dL POC Glucose (mg/dL) (70-110) mg/dL Plasma Lactic Acid Oliver (0.7-2.0) mmol/L Magnesium (1.6-2.3) mg/dL Total Bilirubin (0.2-1.3) mg/dL AST (17-59) U/L ALT (4-49) U/L Troponin I (0.000-0.034) ng/mL Urine Protein 1+ H (Negative) Urine Bacteria Rare H (None) /hpf Urine Mucus Occasional H (None) /hpf 05/19/23 05/19/23 05/19/23 Range/Units 09:31 09:31 09:31 Hct (39.0-53.0) % MCV (80.0-100.0) fL MCHC (31.0-37.0) g/dL Plt Count (150-450) k/uL Macrocytosis PT (10.0-12.5) sec INR (<1.2) APTT (22.0-30.0) sec ABG pH (7.35-7.45) ABG pCO2 (35-45) mmHg ABG pO2 (83-108) mmHg ABG HCO3 (21-25) mmol/L ABG Total CO2 (19-24) mmol/L ABG O2 Saturation (94-97) % Chloride 111 H (98-107) mmol/L Carbon Dioxide 13 L (22-30) mmol/L BUN 24 H (9-20) mg/dL Creatinine 1.92 H (0.66-1.25) mg/dL Glucose 280 H (74-99) mg/dL POC Glucose (mg/dL) (70-110) mg/dL Plasma Lactic Acid Oliver 12.8 H* (0.7-2.0) mmol/L Magnesium 2.6 H (1.6-2.3) mg/dL Total Bilirubin 1.4 H (0.2-1.3) mg/dL AST 449 H (17-59) U/L ALT 282 H (4-49) U/L Troponin I 0.036 H* (0.000-0.034) ng/mL Urine Protein (Negative) Urine Bacteria (None) /hpf Urine Mucus (None) /hpf 05/19/23 05/19/23 05/19/23 Range/Units 09:32 09:56 12:29 Hct (39.0-53.0) % MCV (80.0-100.0) fL MCHC (31.0-37.0) g/dL Plt Count (150-450) k/uL Macrocytosis PT (10.0-12.5) sec INR (<1.2) APTT (22.0-30.0) sec ABG pH 6.80 L* (7.35-7.45) ABG pCO2 92 H* (35-45) mmHg ABG pO2 110 H (83-108) mmHg ABG HCO3 14 L (21-25) mmol/L ABG Total CO2 17 L (19-24) mmol/L ABG O2 Saturation 91.5 L (94-97) % Chloride (98-107) mmol/L Carbon Dioxide (22-30) mmol/L BUN (9-20) mg/dL Creatinine (0.66-1.25) mg/dL Glucose (74-99) mg/dL POC Glucose (mg/dL) 279 H 189 H (70-110) mg/dL Plasma Lactic Acid Oliver (0.7-2.0) mmol/L Magnesium (1.6-2.3) mg/dL Total Bilirubin (0.2-1.3) mg/dL AST (17-59) U/L ALT (4-49) U/L Troponin I (0.000-0.034) ng/mL Urine Protein (Negative) Urine Bacteria (None) /hpf Urine Mucus (None) /hpf 05/19/23 05/19/23 Range/Units 12:58 13:00 Hct (39.0-53.0) % MCV (80.0-100.0) fL MCHC (31.0-37.0) g/dL Plt Count (150-450) k/uL Macrocytosis PT (10.0-12.5) sec INR (<1.2) APTT (22.0-30.0) sec ABG pH 7.23 L (7.35-7.45) ABG pCO2 (35-45) mmHg ABG pO2 >400 H (83-108) mmHg ABG HCO3 16 L (21-25) mmol/L ABG Total CO2 18 L (19-24) mmol/L ABG O2 Saturation 99.4 H (94-97) % Chloride (98-107) mmol/L Carbon Dioxide (22-30) mmol/L BUN (9-20) mg/dL Creatinine (0.66-1.25) mg/dL Glucose (74-99) mg/dL POC Glucose (mg/dL) (70-110) mg/dL Plasma Lactic Acid Oliver 5.1 H* (0.7-2.0) mmol/L Magnesium (1.6-2.3) mg/dL Total Bilirubin (0.2-1.3) mg/dL AST (17-59) U/L ALT (4-49) U/L Troponin I (0.000-0.034) ng/mL Urine Protein (Negative) Urine Bacteria (None) /hpf Urine Mucus (None) /hpf
--- NOTE | 2023-05-19 20:16 | P.DS ---
Providers Date of admission: 05/19/23 11:23 Expected date of discharge: 05/19/23 (Patient ) Attending physician: Glynn Huerta Consults: 05/19/23 11:23 Consult Physician Stat Consulting Provider: Estefania Fournier Consult Reason/Comments: arrest Do you want consulting provider notified?: Already Contacted 05/19/23 13:09 Consult Physician Stat Consulting Provider: Bharath Benítez Consult Reason/Comments: cardiac arrest Do you want consulting provider notified?: Already Contacted 05/19/23 13:11 Consult Physician Stat Consulting Provider: Gloria Pérez Consult Reason/Comments: results of ct scan Do you want consulting provider notified?: Yes Primary care physician: Xavi Cummings [facility] Course: Chief Complaint: Cardiac arrest I'm rounding for Dr. Glynn Huerta This is a 77-year-old patient who follows with Dr. Xavi Cummings. About 820 this morning called 911. is the patient and the patient with Dr. ureña. She came order form the patient on the front porch. Estimated about 20 minutes. Prior to that that with no complaints. Has a known history of coronary artery disease hypertension. EMS arrived about 20 minutes. Initial rhythm was asystole. Subsequently patient was brought to [facility] ER. Denies ICU. Patient on the ventilator with FiO2 50 and a PEEP of 10. Epinephrine drip. Patient's , daughter and passed off the bedside. Patient has no brainstem reflexes. Pupils legs. No gag reflex. No pain response. of recent patient has started making more and more tired. He was spending more time on the couch. Late in the evening patient . Patient was DO NOT RESUSCITATE. Review of systems: Patient intubated Social history: . Retired. Long-standing smoker over 50 years. INVESTIGATIONS, reviewed in the clinical context: White count 5.4 hemoglobin 16 platelets 89 potassium 4.7 BUN 24 creatinine 1.9 to lactic acid 12.8 AST 449 ALT 282 to glucose 289 EKG tracing personally reviewed by me-normal sinus rhythm. [address]- T wave changes. Chest x-ray film personally reviewed by me-diffuse infiltrates CT brain without contrast: Loss of whitt-white differentiation indicating diffuse brain edema. Large area of subtle decreased density in the distribution of the right middle cerebral artery consistent with an acute infarct. Mass effect. Diffuse subarachnoid hemorrhage throughout the sulci bilaterally. Cause of : Stroke Assessment and plan: -Cardiac arrest secondary to severe stroke -Large right middle cerebral artery acute infarct -Diffuse cerebral edema with diffuse subarachnoid hemorrhage throughout bilaterally causing mass effect. 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, downtime at least 40 minutes Disposition: Patient Past Medical History Past Medical History: Coronary Artery Disease (CAD), Hyperlipidemia, Hypertension, Vascular Disorder History of Any Multi-Drug Resistant Organisms: None Reported Smoking Status: Current every day smoker Plan - Discharge Summary Discharge Rx Participant: No New Discharge Prescriptions: No Action carvediloL [Coreg] 3.125 mg PO BID lisinopriL [Zestril] 20 mg PO DAILY Levothyroxine Sodium [Synthroid] 150 mcg PO DAILY Clopidogrel [Plavix] 75 mg PO DAILY Atorvastatin [Lipitor] 80 mg PO HS Latanoprost [Latanoprost 0.005%] 1 drop BOTH EYES HS Dorzolamide-Timol 2.23%/0.68% [Cosopt] 1 drop BOTH EYES BID Brimonidine Tartrate [Alphagan P 0.2% Ophth Soln] 1 drops RIGHT EYE TID Discharge Medication List Atorvastatin [Lipitor] 80 mg PO HS 05/19/23 [History] Brimonidine Tartrate [Alphagan P 0.2% Ophth Soln] 1 drops RIGHT EYE TID 05/19/23 [History] Clopidogrel [Plavix] 75 mg PO DAILY 05/19/23 [History] Dorzolamide-Timol 2.23%/0.68% [Cosopt] 1 drop BOTH EYES BID 05/19/23 [History] Latanoprost [Latanoprost 0.005%] 1 drop BOTH EYES HS 05/19/23 [History] Levothyroxine Sodium [Synthroid] 150 mcg PO DAILY 05/19/23 [History] carvediloL [Coreg] 3.125 mg PO BID 05/19/23 [History] lisinopriL [Zestril] 20 mg PO DAILY 05/19/23 [History] Follow up Appointment(s)/Referral(s): Xavi Cummings MD [Primary Care Provider] - 1-2 days
[2023-05-19] MEDS ORDERED: ATORVASTATIN 80 MG TAB PO SCH (21:00)
[2023-05-19] MEDS ORDERED: CHLORHEXIDINE GLUCONATE 15 ML CUP MUCOUS MEM SCH (21:00)
[2023-05-20] MEDS ORDERED: CLOPIDOGREL 75 MG TAB PO SCH (09:00)
== END 2023-05-19 20:30 | disposition expired | DRG 64 ==
LOC: EC 09:22 → 2SICU 11:23
PROVIDERS: ADMIT Family Medicine; ATTEND Family Medicine
PROC: 0BH18EZ Insertion of Endotracheal Airway into Trachea, Via Natural or Artificial Opening Endoscopic (ICD-10-PCS; principal; 2023-05-19)
PROC: 5A1935Z Respiratory Ventilation, Less than 24 Consecutive Hours (ICD-10-PCS; 2023-05-19)
PROC: 02HV33Z Insertion of Infusion Device into Superior Vena Cava, Percutaneous Approach (ICD-10-PCS; 2023-05-19)
PROC: 3E043XZ Introduction of Vasopressor into Central Vein, Percutaneous Approach (ICD-10-PCS; 2023-05-19)
PROC: 0D9670Z Drainage of Stomach with Drainage Device, Via Natural or Artificial Opening (ICD-10-PCS; 2023-05-19)
DX: I63.511 Cerebral infarction due to unspecified occlusion or stenosis of right middle cerebral artery (principal); G93.6 Cerebral edema; I60.9 Nontraumatic subarachnoid hemorrhage, unspecified; J96.01 Acute respiratory failure with hypoxia; J44.0 Chronic obstructive pulmonary disease with (acute) lower respiratory infection; G93.1 Anoxic brain damage, not elsewhere classified; N17.9 Acute kidney failure, unspecified; E87.20 Acidosis, unspecified; J81.1 Chronic pulmonary edema; R57.0 Cardiogenic shock; Z86.74 Personal history of sudden cardiac arrest; I10 Essential (primary) hypertension; I73.9 Peripheral vascular disease, unspecified; E03.9 Hypothyroidism, unspecified; I25.10 Atherosclerotic heart disease of native coronary artery without angina pectoris; Z66 Do not resuscitate; F17.210 Nicotine dependence, cigarettes, uncomplicated; E78.5 Hyperlipidemia, unspecified; T50.906A Underdosing of unspecified drugs, medicaments and biological substances, initial encounter; R73.9 Hyperglycemia, unspecified; R79.89 Other specified abnormal findings of blood chemistry; Z95.5 Presence of coronary angioplasty implant and graft; Z79.890 Hormone replacement therapy; Z79.02 Long term (current) use of antithrombotics/antiplatelets; Z79.899 Other long term (current) drug therapy; Z91.148 Patient's other noncompliance with medication regimen for other reason
CPT/HCPCS: 31500; 36415; 36600; 70450; 71045; 80053; 81001; 82805; 83605; 83735; 84484; 85025; 85610; 85730; 87070; 87077; 87186; 87205; 93005; 94002; 94640; 96365; 96375; 99291